=== PATIENT | male | born 1970 | race Caucasian/White ===

== ENCOUNTER 2017-10-01 08:20 | Emergency (ER) | payer OTHER ==
[~2017-10-01] VITALS: Ht 188 cm; Wt 100.0 kg
[~2017-10-01 08:20] MED LIST: Z.0.NO CURRENT MEDS
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
[2017-10-01 08:33] VITALS: BP 158/104; PULSE 85; RESP 17; TEMP 99.6; O2SAT 98
[2017-10-01] MEDS ORDERED: ORPHENADRINE INJ 60 MG/2 ML AMP IM ONE (08:45)
[2017-10-01] MEDS ORDERED: KETOROLAC TROMETHAMINE 60 MG/2 ML (IM) VIAL IM ONE (08:45)
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
[2017-10-01] MEDS ORDERED: IBUP-232 PO (13:33)
[2017-10-01 13:35] VITALS: BP 159/97; PULSE 80; RESP 15; O2SAT 98
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
== END 2017-10-01 15:20 | disposition home or self-care (01) ==
LOC: NEPE 08:20
DX: M48.02 Spinal stenosis, cervical region (principal); M47.892 Other spondylosis, cervical region; R20.2 Paresthesia of skin; V43.52XA Car driver injured in collision with other type car in traffic accident, initial encounter; Z79.899 Other long term (current) drug therapy
CPT/HCPCS: 72020; 72040; 72141; 96372; 99285; J1885; J2360; L0150; L0172